=== PATIENT | male | born 1995 | race African-American/Black ===

== ENCOUNTER 2018-09-22 15:31 | Emergency (ER) | payer SELFPAY ==
[2018-09-22] MEDS ORDERED: IBUPROFEN 800 MG TABLET PO ONE (16:37)
[2018-09-22] MEDS ORDERED: PREDNISONE 20 MG TABLET PO ONE (17:11)
--- NOTE | 2018-09-22 17:17 | ER Document Report ---
HPI - HPI Patient complains to provider of: Sore throat Pain Level: 1 Context: Patient is a 23-year-old male presented to the emergency room patient states he was to urgent care on and had a negative strep swab. States the sore throat has continued despite ibuprofen use. Patient denies any URI symptoms, nausea, vomiting, diarrhea, shortness of breath, abdominal pain, dysuria. Patient states he does feel "more tired than normal." Past medical history: None Medications: None Allergies: None - CONSTITUTIONAL Constitutional: DENIES: Fever, Chills Past Medical History - General Information source: Patient - Social History Smoking Status: Never Smoker Chew tobacco use (# tins/day): No Frequency of alcohol use: None Drug Abuse: None Lives with: Family Family History: Reviewed & Not Pertinent Patient has suicidal ideation: No Patient has homicidal ideation: No Renal/ Medical History: Denies: Hx Peritoneal Dialysis Vertical Provider Document - CONSTITUTIONAL Agree With Documented VS: Yes Notes: GENERAL: Alert, interacts well. No acute distress. HEAD: Normocephalic, atraumatic. EYES: Pupils equal, round, and reactive to light. Extraocular movements intact. ENT: Oral mucosa moist, tongue midline. Nares patent, TM's intact, nonerythematous nonbulging. Pharynx erythematous with exudate and palatal petechiae noted tonsils +3 bilaterally NECK: Full range of motion. Supple. Trachea midline. No lymphadenopathy appreciated LUNGS: Clear to auscultation bilaterally, no wheezes, rales, or rhonchi. No respiratory distress. HEART: Regular rate and rhythm. No murmur ABDOMEN: Soft, non-tender. Non-distended. Bowel sounds present in all 4 quadrants. EXTREMITIES: Moves all 4 extremities spontaneously. No edema, normal radial and dorsalis pedis pulses bilaterally. No cyanosis. BACK: no cervical, thoracic, lumbar midline tenderness. No saddle anesthesia, normal distal neurovascular exam. NEUROLOGICAL: Alert and oriented x3. Normal speech. cranial nerves II through XII grossly intact PSYCH: Normal affect, normal mood. SKIN: Warm, dry, normal turgor. No rashes or lesions noted. - INFECTION CONTROL TRAVEL OUTSIDE OF THE [place] IN LAST 30 DAYS: No Course - Re-evaluation Re-evalutation: 09/22/18 18:28 Pages mono test came back positive in the emergency room. Discussed close follow-up with primary care provider. We will treat with steroids. Discussed hydration status with patient. Patient's able to drink a whole bottle of water in the ER heart rate is 93. - Vital Signs Vital signs: Temp Pulse Resp BP Pulse Ox 98.9 F 104 H 14 126/75 H 98 09/22/18 15:36 09/22/18 15:36 09/22/18 15:36 09/22/18 15:36 09/22/18 15:36 Discharge - Discharge Clinical Impression: Mononucleosis Condition: Stable Disposition: HOME, SELF-CARE Instructions: Acetaminophen, Fever ([facility]), Mononucleosis ([facility]) Additional Instructions: You have been seen and treated in the emergency room for mononucleosis. This is a virus and it does not respond to antibiotics. Please stay well-hydrated and take steroids as prescribed. Use [id number] Tylenol Motrin for your throat discomfort and body aches. Please refrain from contact sports until you follow-up with your primary care provider. Prescriptions: Prednisone [Deltasone 20 mg Tablet] 3 tab PO DAILY 5 Days tablet
[2018-09-22] MEDS ORDERED: HYDROCODONE/ACETAMINOPHEN 10-325 MG TABLET PO ONE (17:19)
[2018-09-22 18:30] VITALS: BP 130/70
== END 2018-09-22 18:34 | disposition home or self-care (01) ==
LOC: ER 15:31
DX: B27.90 Infectious mononucleosis, unspecified without complication (principal)
CPT/HCPCS: 99283; 36415; 87070; 87880; 86308; J7512